=== PATIENT | male | born 1960 | race Caucasian/White ===

== ENCOUNTER 2023-05-07 12:12 | Emergency (ER) | payer OTHER ==
[2023-05-07] MEDS ORDERED: Sodium Chloride 0.9% 10 ML Syringe FLUSH PRN (12:30)
[2023-05-07 12:43] LABS: BASOPHILS ABSOLUTE AUTO 0.03 K/mm3 (0.01-0.08); BASOPHILS PERCENT AUTO 0.3 % (0.1-1.2); EOSINOPHILS ABSOLUTE AUTO 0.07 K/mm3 (0.04-0.54); EOSINOPHILS PERCENT AUTO 0.7 (0.8-7.0); HEMATOCRIT 48.4 % (40.1-51.0); HEMOGLOBIN 16.2 gm/dl (13.7-17.5); IMMATURE GRAN ABSOLUTE AUTO 0.04 K/mm3 (0.00-0.10); IMMATURE GRAN PERCENT AUTO 0.4 % (<=1.0); LYMPHOCYTES ABSOLUTE AUTO 2.08 K/mm3 (1.32-3.57); MEAN CORPUSCULAR HEMOGLOBIN 30.1 pg (25.7-32.2); MEAN CORPUSCULAR HGB CONC 33.5 g/dl (32.2-35.5); MEAN PLATELET VOLUME 9.5 fl (9.4-12.3); MONOCYTES ABSOLUTE AUTO 0.99 K/mm3 (0.30-0.82); NEUTROPHILS ABSOLUTE AUTO 6.71 K/mm3 (1.78-5.38); NEUTROPHILS PERCENT AUTO 67.6 % (34.0-67.9); PLATELET COUNT,PLT 268 K/mm3 (163-337); RED BLOOD CELL COUNT 5.38 M/mm3 (4.63-6.08); WHITE BLOOD CELL COUNT,WBC 9.92 K/mm3 (4.23-9.07)
[2023-05-07 13:01] LABS: INR 1.11; PROTHROMBIN TIME 11.8 SECONDS (9.7-12.0)
[2023-05-07 13:02] LABS: PTT,PARTIAL THROMBOPLSTIN TIME 29.8 SECONDS (21.7-31.4)
[2023-05-07 13:19] LABS: A/G RATIO 0.7 (1-2); ALBUMIN 3.1 g/dl (3.4-5.0); ANION GAP 8.7 (5-15); BILIRUBIN TOTAL 0.7 mg/dL (0.2-1.0); BUN/CREATININE RATIO 12.5 (14-18); CALCIUM 8.8 mg/dL (8.5-10.1); CREATININE 0.8 mg/dL (0.7-1.3); EST CRCL DRUG DOSING (CG) 90.25 mL/min; MAGNESIUM 1.7 mg/dL (1.8-2.4); POTASSIUM,K 3.7 mEq/L (3.5-5.1); PROTEIN TOTAL,TP 7.7 g/dl (6.4-8.2)
== END 2023-05-07 13:44 | disposition home or self-care (01) ==
LOC: JD.ED 12:12
DX: R07.89 Other chest pain (principal); Z91.040 Latex allergy status
CPT/HCPCS: 36415; 71045; 71045-26; 80053; 83690; 83735; 83880; 84484; 85025; 85610; 85730; 93005; 99285

== ENCOUNTER 2023-10-10 06:50 | Day surgery (SDC) | payer BC, OTHER ==
[~2023-10-10 06:50] MED LIST: Cefuroxime 10 MG/ML SYRINGE EYERT SCH; Lidocaine 1% PF 2 ML SDV INJECT SCH; Pilocarpine 4% Ophth Soln 15 ML Bot EYERT SCH
[2023-10-10] MEDS: Polymyxin B/Trimethoprim 10 ML Bottle EYERT SCH ×3 (07:15→08:40)
[2023-10-10] MEDS: Brimonidine 0.2% Ophth Soln 5 ML Bottle EYERT SCH ×3 (07:19→08:40)
[2023-10-10] MEDS: Phenylephrine 2.5% Ophth Soln 2 ML Bot EYERT SCH ×5 (07:23→08:18)
[2023-10-10] MEDS: Tropicamide 1% Ophth Soln 3 ML Bottle EYERT SCH ×4 (07:26→07:56)
[2023-10-10] MEDS: Tetracaine HCl/PF 0.5% 4 ML Bottle EYEBOTH SCH ×4 (08:11→08:30)
== END 2023-10-10 08:50 | disposition home or self-care (01) ==
LOC: JD.SDS 06:50
PROVIDERS: ATTEND Ophthalmology
DX: H25.813 Combined forms of age-related cataract, bilateral (principal); H40.053 Ocular hypertension, bilateral; H34.8312 Tributary (branch) retinal vein occlusion, right eye, stable; H16.103 Unspecified superficial keratitis, bilateral; H16.223 Keratoconjunctivitis sicca, not specified as Sjogren's, bilateral; H35.372 Puckering of macula, left eye; E10.9 Type 1 diabetes mellitus without complications; Z79.899 Other long term (current) drug therapy
CPT/HCPCS: 66984; A9270; J0697; V2788; J3490

== ENCOUNTER 2023-11-17 07:00 | Day surgery (SDC) | payer BC ==
[~2023-11-17 07:00] MED LIST changes: +Cefuroxime 10 MG/ML SYRINGE EYELF SCH; -Cefuroxime 10 MG/ML SYRINGE EYERT SCH; +Pilocarpine 4% Ophth Soln 15 ML Bot EYELF SCH; -Pilocarpine 4% Ophth Soln 15 ML Bot EYERT SCH
[2023-11-17] MEDS: Polymyxin B/Trimethoprim 10 ML Bottle EYELF SCH ×3 (07:23→09:01)
[2023-11-17] MEDS: Brimonidine 0.2% Ophth Soln 5 ML Bottle EYELF SCH ×3 (07:28→09:01)
[2023-11-17] MEDS: Phenylephrine 2.5% Ophth Soln 2 ML Bot EYELF SCH ×4 (07:33→08:43)
[2023-11-17] MEDS: Tropicamide 1% Ophth Soln 3 ML Bottle EYELF SCH ×4 (07:38→08:15)
[2023-11-17] MEDS: Tetracaine HCl/PF 0.5% 4 ML Bottle EYEBOTH SCH ×5 (08:19→08:49)
== END 2023-11-17 09:14 | disposition home or self-care (01) ==
LOC: JD.SDS 07:00
PROVIDERS: ATTEND Ophthalmology
DX: H25.812 Combined forms of age-related cataract, left eye (principal); E11.9 Type 2 diabetes mellitus without complications; I10 Essential (primary) hypertension; E07.9 Disorder of thyroid, unspecified; Z96.1 Presence of intraocular lens; Z79.4 Long term (current) use of insulin; Z79.890 Hormone replacement therapy; Z79.84 Long term (current) use of oral hypoglycemic drugs; Z79.899 Other long term (current) drug therapy; Z91.040 Latex allergy status
CPT/HCPCS: 66984; A9270; J0697; J3490; V2632

== ENCOUNTER 2025-06-18 17:40 | Inpatient (IN) | payer MEDICARE, OTHER ==
[2025-06-18] MEDS: Sodium Chloride 0.9% 10 ML Syringe FLUSH PRN (18:56)
[2025-06-18 19:03] LABS: MEAN PLATELET VOLUME 9.9 fl (9.4-12.4); NRBC ABSOLUTE 0.00 (0.00-0.02); NRBC PERCENT 0.0 % (0.0-0.2); PLATELET COUNT,PLT 196 K/mm3 (150-400); RED BLOOD CELL COUNT 5.40 M/mm3 (4.52-5.90); WHITE BLOOD CELL COUNT,WBC 28.47 K/mm3 (3.9-11.3)
[2025-06-18 19:13] LABS: APPEARANCE,URINE CLOUDY (Clear); GLUCOSE,URINE 2+ (Negative); OCCULT BLOOD,URINE 2+ (Negative)
[2025-06-18 19:19] LABS: INR 1.6
[2025-06-18 19:31] LABS: A/G RATIO 0.6 (1-2); ALANINE AMINOTRANSFERASE,ALT 29.0 U/L (16-63); ASPARTATE AMNIOTRANSFERASE,AST 24.0 U/L (15-37); BILIRUBIN TOTAL 2.0 mg/dL (0.2-1.0); BLOOD UREA NITROGEN,BUN 14.0 mg/dL (7-18); CARBON DIOXIDE,CO2 25.0 mEq/L (21-32); CHLORIDE,CL 96.0 mEq/L (98-107); CREATININE 1.2 mg/dL (0.7-1.3); EST CRCL DRUG DOSING (CG) 58.58 mL/min; ESTIMATED GFR 67.0 mL/min (>60); GLUCOSE RANDOM 197.0 mg/dL (70-99); POTASSIUM,K 3.0 mEq/L (3.5-5.1); PROTEIN TOTAL,TP 7.4 g/dl (6.4-8.2); SODIUM,NA 134.0 mEq/L (136-145)
[2025-06-18 19:40] LABS: LACTIC ACID 4.0 mmol/L (0.4-2.0)
[2025-06-18 19:50] LABS: BAND PERCENT MAN 7 % (0-10); BASOPHILS PERCENT MAN 0 (0.2-1.2); EOSINOPHILS PERCENT MAN 2 % (0.8-7.0); LYMPHOCYTES % ATYPICAL MANUAL 0 %; LYMPHOCYTES PERCENT MAN 5 % (20-40); MONOCYTES PERCENT MAN 4 % (2-10)
[2025-06-18 19:51] LABS: PLATELET COUNT ESTIMATE ADEQUATE
[2025-06-18] MEDS ORDERED: Ondansetron 4 MG/2 ML SDV IVPUSH PRN (21:52)
[2025-06-18 23:44] LABS: EPITHELIAL CELLS,URINE 0-5 /hpf (0-5)
[2025-06-19 04:26] LABS: BASOPHILS ABSOLUTE AUTO 0.1 K/mm3 (0.0-0.2); BASOPHILS PERCENT AUTO 0.4 % (0.0-1.0); EOSINOPHILS ABSOLUTE AUTO 0.0 K/mm3 (0.0-0.4); EOSINOPHILS PERCENT AUTO 0.0 % (0.0-6.0); IMMATURE GRAN ABSOLUTE AUTO 0.33 K/mm3 (0.00-0.05); IMMATURE GRAN PERCENT AUTO 1.5 % (0.0-0.4); LYMPHOCYTES ABSOLUTE AUTO 0.8 K/mm3 (1.0-4.8); LYMPHOCYTES PERCENT AUTO 3.6 % (24.0-44.0); MEAN PLATELET VOLUME 9.4 fl (9.4-12.4); MONOCYTES ABSOLUTE AUTO 2.0 K/mm3 (0.0-0.8); MONOCYTES PERCENT AUTO 9.0 % (0.0-8.0); NEUTROPHILS ABSOLUTE AUTO 19.0 K/mm3 (1.8-7.7); NEUTROPHILS PERCENT AUTO 85.5 % (41.0-71.0); NRBC ABSOLUTE 0.00 (0.00-0.02); NRBC PERCENT 0.0 % (0.0-0.2); PLATELET COUNT,PLT 173 K/mm3 (150-400); RED BLOOD CELL COUNT 5.03 M/mm3 (4.52-5.90); WHITE BLOOD CELL COUNT,WBC 22.23 K/mm3 (3.9-11.3)
[2025-06-19 04:48] LABS: BLOOD UREA NITROGEN,BUN 16.0 mg/dL (7-18); CARBON DIOXIDE,CO2 24.0 mEq/L (21-32); CHLORIDE,CL 101.0 mEq/L (98-107); CREATININE 0.9 mg/dL (0.7-1.3); EST CRCL DRUG DOSING (CG) 78.11 mL/min; ESTIMATED GFR 94.0 mL/min (>60); GLUCOSE RANDOM 152.0 mg/dL (70-99); PHOSPHORUS 2.1 mg/dL (2.6-4.7); POTASSIUM,K 3.0 mEq/L (3.5-5.1); SODIUM,NA 137.0 mEq/L (136-145)
[2025-06-19] MEDS ORDERED: Labetalol 100 MG/20 ML MDV IVPUSH PRN (08:15)
[2025-06-19] MEDS ORDERED: hydrALAZINE 20 MG/ML SDV IVPUSH PRN (08:15)
[2025-06-19] MEDS ORDERED: 50% Dextrose in Water 50 ML Syringe IVPUSH PRN (08:17)
[2025-06-19] MEDS ORDERED: Sennosides/Docusate Sodium 50-8.6 MG Tab PO PRN (08:18)
[2025-06-19] MEDS ORDERED: Ondansetron 4 MG Tab.DIS PO PRN (08:18)
[2025-06-19 08:57] LABS: TSH 1.712 uIU/mL (0.358-3.74)
[2025-06-19] MEDS: Potassium Chloride 20 MEQ Tab.ER PO ONE (08:57)
[2025-06-19] MEDS: Potassium Phosphates 30 MMOLE in Sodium Chloride 0.9% 500 ML IV SCH (11:55)
[2025-06-19] MEDS: Insulin Lispro 100 Unit/ML 3 ML KwikPen SUBCUT SCH (11:55)
[2025-06-20 04:33] LABS: BASOPHILS ABSOLUTE AUTO 0.1 K/mm3 (0.0-0.2); BASOPHILS PERCENT AUTO 0.7 % (0.0-1.0); EOSINOPHILS ABSOLUTE AUTO 0.1 K/mm3 (0.0-0.4); EOSINOPHILS PERCENT AUTO 0.4 % (0.0-6.0); IMMATURE GRAN ABSOLUTE AUTO 0.22 K/mm3 (0.00-0.05); IMMATURE GRAN PERCENT AUTO 1.9 % (0.0-0.4); LYMPHOCYTES ABSOLUTE AUTO 0.9 K/mm3 (1.0-4.8); LYMPHOCYTES PERCENT AUTO 7.7 % (24.0-44.0); MEAN PLATELET VOLUME 10.0 fl (9.4-12.4); MONOCYTES ABSOLUTE AUTO 1.3 K/mm3 (0.0-0.8); MONOCYTES PERCENT AUTO 10.6 % (0.0-8.0); NEUTROPHILS ABSOLUTE AUTO 9.3 K/mm3 (1.8-7.7); NEUTROPHILS PERCENT AUTO 78.7 % (41.0-71.0); NRBC ABSOLUTE 0.00 (0.00-0.02); NRBC PERCENT 0.0 % (0.0-0.2); PLATELET COUNT,PLT 158 K/mm3 (150-400); RED BLOOD CELL COUNT 5.14 M/mm3 (4.52-5.90); WHITE BLOOD CELL COUNT,WBC 11.77 K/mm3 (3.9-11.3)
[2025-06-20 05:01] LABS: A/G RATIO 0.6 (1-2); ALANINE AMINOTRANSFERASE,ALT 31.0 U/L (16-63); ASPARTATE AMNIOTRANSFERASE,AST 39.0 U/L (15-37); BILIRUBIN TOTAL 0.7 mg/dL (0.2-1.0); BLOOD UREA NITROGEN,BUN 13.0 mg/dL (7-18); CARBON DIOXIDE,CO2 25.0 mEq/L (21-32); CHLORIDE,CL 100.0 mEq/L (98-107); CREATININE 0.8 mg/dL (0.7-1.3); EST CRCL DRUG DOSING (CG) 87.88 mL/min; ESTIMATED GFR 98.0 mL/min (>60); GLUCOSE RANDOM 159.0 mg/dL (70-99); PHOSPHORUS 2.1 mg/dL (2.6-4.7); POTASSIUM,K 3.7 mEq/L (3.5-5.1); PROTEIN TOTAL,TP 6.6 g/dl (6.4-8.2); SODIUM,NA 135.0 mEq/L (136-145)
[2025-06-20] MEDS: Insulin Glargine,Human Rec. Analog 100 Units/ML 3 ML Pen SUBCUT SCH (09:32)
[2025-06-21 05:08] LABS: BLOOD UREA NITROGEN,BUN 11.0 mg/dL (7-18); CARBON DIOXIDE,CO2 25.0 mEq/L (21-32); CHLORIDE,CL 100.0 mEq/L (98-107); CREATININE 0.7 mg/dL (0.7-1.3); EST CRCL DRUG DOSING (CG) 100.43 mL/min; ESTIMATED GFR 102.0 mL/min (>60); GLUCOSE RANDOM 197.0 mg/dL (70-99); POTASSIUM,K 3.1 mEq/L (3.5-5.1); SODIUM,NA 135.0 mEq/L (136-145)
[2025-06-21 05:09] LABS: BASOPHILS ABSOLUTE AUTO 0.1 K/mm3 (0.0-0.2); BASOPHILS PERCENT AUTO 1.5 % (0.0-1.0); EOSINOPHILS ABSOLUTE AUTO 0.1 K/mm3 (0.0-0.4); EOSINOPHILS PERCENT AUTO 1.4 % (0.0-6.0); IMMATURE GRAN ABSOLUTE AUTO 0.35 K/mm3 (0.00-0.05); IMMATURE GRAN PERCENT AUTO 4.0 % (0.0-0.4); LYMPHOCYTES ABSOLUTE AUTO 1.6 K/mm3 (1.0-4.8); LYMPHOCYTES PERCENT AUTO 17.8 % (24.0-44.0); MEAN PLATELET VOLUME 10.0 fl (9.4-12.4); MONOCYTES ABSOLUTE AUTO 1.7 K/mm3 (0.0-0.8); MONOCYTES PERCENT AUTO 18.7 % (0.0-8.0); NEUTROPHILS ABSOLUTE AUTO 5.0 K/mm3 (1.8-7.7); NEUTROPHILS PERCENT AUTO 56.6 % (41.0-71.0); NRBC ABSOLUTE 0.00 (0.00-0.02); NRBC PERCENT 0.0 % (0.0-0.2); PLATELET COUNT,PLT 189 K/mm3 (150-400); RED BLOOD CELL COUNT 5.00 M/mm3 (4.52-5.90); WHITE BLOOD CELL COUNT,WBC 8.84 K/mm3 (3.9-11.3)
[2025-06-21] MEDS: Potassium Chloride 20 MEQ Tab.ER PO ONE (09:21)
== END 2025-06-21 12:28 | disposition home or self-care (01) | DRG 872 ==
LOC: JD.ED 17:40 → JD.MS 20:46
PROVIDERS: ADMIT Student in an Organized Health Care Education/Training Program; ATTEND Family Medicine
PROC: 3E03329 Introduction of Other Anti-infective into Peripheral Vein, Percutaneous Approach (ICD-10-PCS; principal; 2025-06-18)
PROC: 5A09357 Assistance with Respiratory Ventilation, Less than 24 Consecutive Hours, Continuous Positive Airway Pressure (ICD-10-PCS; 2025-06-18)
DX: A41.51 Sepsis due to Escherichia coli [E. coli] (principal); E87.20 Acidosis, unspecified; N39.0 Urinary tract infection, site not specified; R65.20 Severe sepsis without septic shock; E87.6 Hypokalemia; E83.42 Hypomagnesemia; E83.39 Other disorders of phosphorus metabolism; E03.9 Hypothyroidism, unspecified; H54.7 Unspecified visual loss; I10 Essential (primary) hypertension; K74.60 Unspecified cirrhosis of liver; R51.9 Headache, unspecified; E11.9 Type 2 diabetes mellitus without complications; G47.33 Obstructive sleep apnea (adult) (pediatric); N32.0 Bladder-neck obstruction; K21.9 Gastro-esophageal reflux disease without esophagitis; Z79.899 Other long term (current) drug therapy; Z91.040 Latex allergy status; Z79.890 Hormone replacement therapy; Z79.4 Long term (current) use of insulin; Z86.16 Personal history of COVID-19; Z98.49 Cataract extraction status, unspecified eye; Z90.49 Acquired absence of other specified parts of digestive tract; Z98.890 Other specified postprocedural states
CPT/HCPCS: 36415; 80053; 81001; 83605; 85007; 85027; 85610; 86140; 87040 ×2; 87086; 87088; 87186; 93005; 96361; 96374; 99285; A9270; J0696; J7030; 80048; 82947; 83735; 84100; 84443; 85025; 93010; 94660; 94760; 94761; J1650; J1815-GY; J3475; J3490; J7040